=== PATIENT | male | born 1990 | race Caucasian/White ===

== ENCOUNTER 2018-07-03 15:09 | Emergency (ER) | payer BC ==
[~2018-07-03] VITALS: Ht 188 cm; Wt 133.6 kg
[2018-07-03] MEDS ORDERED: CLOMIPHENE CITR50 MG PO (15:20)
[2018-07-03 15:52] LABS: EOS # 0.1 (0.04-0.40); EOS % 1.3 % (0.0-4.0); HEMATOCRIT 44.2 % (42.0-52.0); HEMOGLOBIN 14.2 g/dL (13.5-18.0); LYMPH# 2.1 (1.50-4.00); MEAN CELL VOLUME 86 fl (78-100); MEAN CORPUSCULAR HEMOGLOBIN 28 pg (27-31); MEAN CORPUSCULAR HGB CONC 32 g/dL (33-37); MEAN PLATELET VOLUME 10.9 fl (7.4-10.4); MONO # 0.7 (0.20-0.80); PLATELET COUNT 180 K/mm3 (130-400); RED BLOOD COUNT 5.15 M/mm3 (4.20-5.60); RED CELL DISTRIBUTION WIDTH 13.1 % (11.5-14.5); WHITE BLOOD COUNT 7.9 K/mm3 (4.8-10.8)
[2018-07-03 17:15] VITALS: BP 139/94
[2018-07-03 18:24] LABS: PROTHROMBIN TIME 9.9 SECONDS (9.0-12.0)
== END 2018-07-03 16:40 | disposition home or self-care (01) ==
LOC: ED 15:09
PROVIDERS: Nurse Practitioner Primary Care
DX: I83.892 Varicose veins of left lower extremity with other complications (principal)

== ENCOUNTER 2018-07-03 21:36 | Emergency (ER) | payer BC ==
[~2018-07-03 21:36] MED LIST: CLOMIPHENE CITR50 MG PO
[2018-07-03 22:28] VITALS: BP 129/87
== END 2018-07-03 22:30 | disposition home or self-care (01) ==
LOC: ED 21:36
DX: I83.892 Varicose veins of left lower extremity with other complications (principal)

== ENCOUNTER → 2019-11-09 | Outpatient (CLI) | payer BC | LOC: LAB 13:48 | DX: R05 Cough (principal); Z20.828 Contact with and (suspected) exposure to other viral communicable diseases ==

== ENCOUNTER → 2020-08-08 | Outpatient (CLI) | payer BC | LOC: RAD 13:34 | DX: M79.672 Pain in left foot (principal) ==

== ENCOUNTER 2022-02-05 07:55 | Emergency (ER) | payer BC ==
[~2022-02-05] VITALS: Ht 188 cm; Wt 134.7 kg
[2022-02-05 08:37] LABS: BASO # 0.01 K/mm3 (0.02-0.10); EOS # 0.08 K/mm3 (0.04-0.40); EOS % 1.5 % (0.0-4.0); HEMATOCRIT 44.5 % (42.0-52.0); LYMPH# 1.38 K/mm3 (1.50-4.00); MEAN CELL VOLUME 87 fl (78-100); MEAN CORPUSCULAR HEMOGLOBIN 27 pg (27-31); MEAN CORPUSCULAR HGB CONC 32 g/dL (33-37); MEAN PLATELET VOLUME 9.7 fl (7.4-10.4); MONO # 0.54 K/mm3 (0.20-0.80); NEU # 3.37 K/mm3 (1.40-6.50); PLATELET COUNT 187 K/mm3 (130-400); RED BLOOD COUNT 5.13 M/mm3 (4.20-5.60); RED CELL DISTRIBUTION WIDTH 12.7 % (11.5-14.5); WHITE BLOOD COUNT 5.4 K/mm3 (4.8-10.8)
[2022-02-05 08:50] LABS: ALBUMIN 4.3 g/dL (3.5-5.0); POTASSIUM 4.2 mmol/L (3.5-5.1)
[2022-02-05 08:51] LABS: CALCIUM 9.3 mg/dL (8.3-10.5)
[2022-02-05 08:52] LABS: TOTAL PROTEIN 7.2 g/dL (6.4-8.3)
[2022-02-05 08:54] LABS: TOTAL BILIRUBIN 0.3 mg/dL (0.2-1.2)
[2022-02-05] MEDS ORDERED: PERCOCET 325 MG1 TA2 PO (10:48)
[2022-02-05] MEDS ORDERED: PREDNISONE10 MG (10:48)
[2022-02-05 11:00] VITALS: BP 132/78
== END 2022-02-05 11:08 | disposition home or self-care (01) ==
LOC: ED 07:55
PROVIDERS: Nurse Practitioner
DX: L53.9 Erythematous condition, unspecified (principal); Z86.19 Personal history of other infectious and parasitic diseases
CPT/HCPCS: J0696; J1885; Q9967

== ENCOUNTER → 2022-03-23 | Outpatient (CLI) | payer BC ==
[~2022-03-23] MED LIST changes: +PERCOCET 325 MG1 TA2 PO; +PREDNISONE10 MG
[2022-03-23 07:23] LABS: BASO # 0.02 K/mm3 (0.02-0.10); EOS # 0.12 K/mm3 (0.04-0.40); EOS % 2.3 % (0.0-4.0); HEMATOCRIT 44.9 % (42.0-52.0); HEMOGLOBIN 14.3 g/dL (13.5-18.0); LYMPH# 1.61 K/mm3 (1.50-4.00); MEAN CELL VOLUME 87 fl (78-100); MEAN CORPUSCULAR HEMOGLOBIN 28 pg (27-31); MEAN CORPUSCULAR HGB CONC 32 g/dL (33-37); NEU # 2.96 K/mm3 (1.40-6.50); PLATELET COUNT 192 K/mm3 (130-400); RED BLOOD COUNT 5.18 M/mm3 (4.20-5.60); RED CELL DISTRIBUTION WIDTH 13.1 % (11.5-14.5); WHITE BLOOD COUNT 5.2 K/mm3 (4.8-10.8)
[2022-03-23 08:06] LABS: ALBUMIN 4.2 g/dL (3.5-5.0); POTASSIUM 4.1 mmol/L (3.5-5.1)
[2022-03-23 08:08] LABS: CALCIUM 9.3 mg/dL (8.3-10.5)
[2022-03-23 08:09] LABS: TOTAL PROTEIN 7.1 g/dL (6.4-8.3)
[2022-03-23 08:11] LABS: TOTAL BILIRUBIN 0.4 mg/dL (0.2-1.2)
== END ==
LOC: LAB 07:06
PROVIDERS: Nurse Practitioner
DX: R00.9 Unspecified abnormalities of heart beat (principal)

== ENCOUNTER → 2022-08-27 | Outpatient (CLI) | payer BC | LOC: LAB 09:13 | DX: E23.0 Hypopituitarism (principal) ==

== ENCOUNTER → 2023-05-06 | Outpatient (CLI) | payer BC ==
[~2023-05-06] MED LIST changes: +ONDANSETRON HYDR4 MG PO
== END ==
LOC: RAD 12:58
DX: K57.30 Diverticulosis of large intestine without perforation or abscess without bleeding (principal)
CPT/HCPCS: Q9967

== ENCOUNTER → 2024-01-06 | Outpatient (CLI) | payer BC ==
[2024-01-06 09:03] LABS: BASO # 0.01 K/mm3 (0.02-0.10); EOS # 0.11 K/mm3 (0.04-0.40); EOS % 2.5 % (0.0-4.0); HEMATOCRIT 51.8 % (42.0-52.0); HEMOGLOBIN 16.7 g/dL (13.5-18.0); MEAN CELL VOLUME 88 fl (78-100); MEAN CORPUSCULAR HEMOGLOBIN 28 pg (27-31); MEAN CORPUSCULAR HGB CONC 32 g/dL (33-37); MONO # 0.51 K/mm3 (0.20-0.80); NEU # 2.41 K/mm3 (1.40-6.50); PLATELET COUNT 183 K/mm3 (130-400); RED BLOOD COUNT 5.87 M/mm3 (4.20-5.60); RED CELL DISTRIBUTION WIDTH 12.5 % (11.5-14.5); WHITE BLOOD COUNT 4.4 K/mm3 (4.8-10.8)
[2024-01-06 09:07] LABS: ALBUMIN 4.4 g/dL (3.5-5.0)
[2024-01-06 09:08] LABS: CALCIUM 9.4 mg/dL (8.3-10.5)
[2024-01-06 09:09] LABS: TOTAL PROTEIN 7.1 g/dL (6.4-8.3)
[2024-01-06 09:11] LABS: TOTAL BILIRUBIN 0.4 mg/dL (0.2-1.2)
== END ==
LOC: LAB 08:39
PROVIDERS: Internal Medicine
DX: Z00.00 Encounter for general adult medical examination without abnormal findings (principal)